=== PATIENT | female | born 1970 | race Two or more races ===

== ENCOUNTER 2017-08-22 20:17 | Emergency (ER) | payer OTHER ==
[~2017-08-22] VITALS: Ht 172.7 cm; Wt 122.5 kg
[~2017-08-22 20:17] MED LIST: AMOX1TAB12 PO; MOTRIN800 MG PO
== END 2017-08-22 22:29 | disposition home or self-care (01) ==
LOC: ER 20:17
DX: B34.9 Viral infection, unspecified (principal)

== ENCOUNTER 2017-08-26 22:31 | Emergency (ER) | payer OTHER ==
[~2017-08-26] VITALS: Ht 172.7 cm; Wt 122.5 kg
[2017-08-27] MEDS ORDERED: FLONASE16 GM NASAL (04:00)
[2017-08-27] MEDS ORDERED: SYMBICORT 16010.2 GM IH (04:00)
[2017-08-27] MEDS ORDERED: ALBUTEROL2.5 MG/3 M IH (04:00)
[2017-08-27] MEDS ORDERED: ZYNCOF 20-400120 ML PO (04:00)
== END 2017-08-27 03:55 | disposition home or self-care (01) ==
LOC: ER 22:31
DX: J06.9 Acute upper respiratory infection, unspecified (principal)

== ENCOUNTER → 2017-10-11 | Emergency (ER) | payer OTHER ==
[~2017-10-11] VITALS: Ht 172.7 cm; Wt 136.1 kg
[~2017-10-11] MED LIST changes: +ALBUTEROL2.5 MG/3 M IH; +FLONASE16 GM NASAL; +KETO10TA2 PO; +OSEL75CA PO; +PROMETH-CODEIN 65 ML PO; +SYMBICORT 16010.2 GM IH; +ZITHROMAX500 MG PO; +ZYNCOF 20-400120 ML PO
== END | disposition home or self-care (01) ==
LOC: ER 18:56
DX: J01.00 Acute maxillary sinusitis, unspecified (principal)